=== PATIENT | female | born 1960 | race Two or more races ===

== ENCOUNTER 2021-09-28 16:29 | Inpatient (IN) | payer OTHER ==
[~2021-09-28] VITALS: Ht 157.5 cm; Wt 93.4 kg
[2021-10-02] MEDS ORDERED: TENORMIN100 M1 PO (11:48)
[2021-10-02] MEDS ORDERED: IRBESARTAN150 MG PO (11:48)
[2021-10-02] MEDS ORDERED: GLIMEPIRIDE2 MG (11:49)
[2021-10-02] MEDS ORDERED: NORVASC5 MG PO (11:49)
[2021-10-02] MEDS ORDERED: JANUMET 50-5001 EACH PO (11:49)
[2021-10-02] MEDS ORDERED: GABAPENTIN300 M2 PO (11:50)
[2021-10-02] MEDS ORDERED: LANTUS SOL100 UNIT/1 (11:50)
[2021-10-31] MEDS ORDERED: HUMALOG KW100 UNIT/1 (08:39)
[2021-10-31] MEDS ORDERED: ATORVASTATIN CA40 MG (08:39)
== END 2021-11-03 15:35 | disposition home or self-care (01) | DRG 741 ==
LOC: OB/GYN 10-03 08:15 → O/R 10-31 06:00 → OB/GYN 10-31 11:37
PROVIDERS: ADMIT Specialist; ATTEND Specialist
PROC: 0UT70ZZ Resection of Bilateral Fallopian Tubes, Open Approach (ICD-10-PCS; 2021-10-31)
PROC: 0UT20ZZ Resection of Bilateral Ovaries, Open Approach (ICD-10-PCS; 2021-10-31)
PROC: 07BC0ZZ Excision of Pelvis Lymphatic, Open Approach (ICD-10-PCS; 2021-10-31)
PROC: 3E1M38Z Irrigation of Peritoneal Cavity using Irrigating Substance, Percutaneous Approach (ICD-10-PCS; 2021-10-31)
PROC: 0DBU0ZZ Excision of Omentum, Open Approach (ICD-10-PCS; 2021-10-31)
PROC: 0UT90ZZ Resection of Uterus, Open Approach (ICD-10-PCS; principal; 2021-10-31 07:00)
DX: C54.1 Malignant neoplasm of endometrium (principal); N83.291 Other ovarian cyst, right side; N83.292 Other ovarian cyst, left side; D25.1 Intramural leiomyoma of uterus; Z20.822 Contact with and (suspected) exposure to COVID-19